=== PATIENT | female | born 1995 | race Caucasian/White ===

== ENCOUNTER → 2022-07-10 | Outpatient (CLI) | payer BC ==
--- NOTE | 2022-07-10 17:10 | Diagnostic Imaging Report ---
INDICATION: anatomy survey. TECHNIQUE: Multiple real-time grayscale images were obtained over the gravid uterus. COMPARISON: None FINDINGS: Cervix measures 4.7 cm in length. The fetus is in cephalic presentation. Placenta is anterior position and there are no features of previa. MELISSA is normal at 15.75 cm. Following anatomy is visualized and normal: Spine, left ventricular outflow tract, lips/nose, cerebral ventricles, stomach, four-chamber heart, urinary bladder, three-vessel cord, umbilical cord insertion, posterior fossa and kidneys. Biometrical measurements are as follows: Biparietal 4.82 cm, age 20 weeks 5 days. Head circumference 18.82 cm, age 20 weeks 6 days. Abdominal circumference 15.09 cm, age 20 weeks 3 days. Femur length 3.03 cm, age 19 weeks 3 days. Sonographic estimate age: 20 weeks 3 days. Sonographic estimated date of delivery: 11/24/2022. Estimated Weight: 325 gm (+/- 48 gm). LMP percentile: 30%. heart rate: 158 beats per minute. number: 1 of 1. IMPRESSION: Single live anterior has normal anatomy survey. Dictated by: Dictated on workstation # [id number]
== END ==
LOC: RAD 15:20
PROVIDERS: ATTEND Obstetrics & Gynecology
DX: Z36.89 Encounter for other specified antenatal screening (principal); Z3A.20 20 weeks gestation of pregnancy
CPT/HCPCS: 76805

== ENCOUNTER → 2022-10-12 | Outpatient (CLI) | payer BC | LOC: LABNPT 14:22 | PROVIDERS: ATTEND Obstetrics & Gynecology | DX: O13.9 Gestational [pregnancy-induced] hypertension without significant proteinuria, unspecified trimester (principal); Z3A.00 Weeks of gestation of pregnancy not specified | CPT/HCPCS: 82570; 84156 ==

== ENCOUNTER → 2022-11-11 | Outpatient (CLI) | payer BC | LOC: LABNPT 11:15 | PROVIDERS: ATTEND Nurse Practitioner Women's Health | DX: O13.9 Gestational [pregnancy-induced] hypertension without significant proteinuria, unspecified trimester (principal); Z3A.00 Weeks of gestation of pregnancy not specified | CPT/HCPCS: 82570; 84156 ==

== ENCOUNTER 2022-11-18 02:14 | Inpatient (IN) | payer BC ==
[~2022-11-18] VITALS: Ht 172 cm; Wt 164.0 kg
[2022-11-18] VITALS (52 sets, daily range): BP systolic 126–181; BP diastolic 60–92
--- NOTE | 2022-11-18 06:37 | History & Physical-OB/GYN ---
CLAREBENI 11/18/22 0637: OB - Chief Complaint & HPI Date/Time Date of Admission: Date of Admission: Nov 18, 2022 at 06:10 Date seen by a Provider: Nov 18, 2022 Time Seen by a Provider: 06:20 Chief Complaint/History OB-Reason for Admission/Chief: Induction of Labor Hx : 2 Hx Para: 1 Expected Date of Delivery: Nov 25, 2022 Gestational Age in Weeks: 39 Gestational Age in Days: 0 Indication for induction: medical complication (gestational hypertension) History of Labs O+ Antibody Neg VDRL NR HBsAg NR HIV NR G/C Neg RI GBS Neg Allergies and Home Medications Allergies Coded Allergies: No Known Drug Allergies (Unverified , 11/18/22) Patient Home Medication List Home Medication List Reviewed: Yes OB - History Hx of Present Care: Yes Ultrasounds: Normal mid trimester US Obstetrical Complications: Gestational Hypertension Medical Complications: None Information Induced Hypertension: No Maternal Gestational Diabetes: No Hemorrhage: No Obstetrical History Hx : 2 Hx Para: 1 Number of Living Children: 1 Hx Termination: No Hx Total # of Abortions (Spona: 0 Hx Multiple Gestation: No Hx Ectopic : No Hx Stillbirth: No Hx Complication: No Hx Induced Hypertens: Yes Hx Maternal Gestational Diabet: No Hx Hemorrhage: No Delivery History Hx Dystocia: No Hx Forceps Assisted Delivery: No Hx Vacuum Extraction Assisted: No Hx Placenta Abnormality: No Hx Distress: No Hx Large For Gestational Age I: No Hx Small for Gestational Age I: No Hx Section: No Hx Vaginal Delivery Post C-Sec: No Hx Blood Disorders: No Adverse Rxn to Tranfusion: No Patient Past Medical History NC Social History/Family History Alcohol Use: Denies Use Recreational Drug Use: No Smoking Cessation: Never smoker Immunizations Rubella: immune RPR/VDRL: Negative GBS Status: Negative HBsAG: Negative OB - Admission Exam Physical Exam HEENT: PERRLA Heart: Rhythm Normal (tachycardic) Lungs: Clear Abdomen: Gravid Extremities: Edema Reflexes: Normal OB - Assessment/Plan/Diagnosis Assessment Assessment: induction of labor Admission Dx at 39 weeks 0 days IOL secondary to gestational hypertension Hx gestational hypertension in previous GBS Negative Otherwise uncomplicated Admission Status: Inpatient Order (span 2 midnights) Reason for Inpatient Admission: IOL due to gestational hypertension Plan Plan: Induction SYED MARTINEZ DO 11/18/22 0714: Allergies and Home Medications Allergies Coded Allergies: No Known Drug Allergies (Unverified , 11/18/22) Supervisory-Addendum Brief Verification & Attestation Participated in pt care: history Personally performed: exam Care discussed with: Medical Student Procedures: n/a Results interpretation: Verified all documentation Verification and Attestation of Medical Student E/M Service A medical student performed and documented this service in my presence. I reviewed and verified all information documented by the medical student and made modifications to such information, when appropriate. I personally performed the physical exam and medical decision making. Syed Martinez Nov 18, 2022,07:14 BENI SPARKS Nov 18, 2022 06:37 YSED MARTINEZ DO Nov 18, 2022 07:14
[2022-11-18] MEDS ORDERED: D5 LR IV SOLUTION 1,000 ML IV SCH (06:45)
[2022-11-18] MEDS ORDERED: MINERAL OIL 30 ML UDC TOP PRN (06:45)
[2022-11-18 06:51] LABS: BASOPHILS % (AUTO) 0 % (0-10); EOSINOPHILS # (AUTO) 0.1 10^3/uL (0.0-0.3); EOSINOPHILS % (AUTO) 1 % (0-10); HEMATOCRIT 37 % (35-52); HEMOGLOBIN 12.1 g/dL (11.5-16.0); LYMPHOCYTES % (AUTO) 19 % (12-44); MEAN CORPUSCULAR HEMOGLOBIN 27 pg (25-34); MEAN CORPUSCULAR HGB CONC 33 g/dL (32-36); MEAN CORPUSCULAR VOLUME 81 fL (80-99); MEAN PLATELET VOLUME 10.8 fL (9.0-12.2); MONOCYTES # (AUTO) 0.7 10^3/uL (0.0-1.0); MONOCYTES % (AUTO) 7 % (0-12); NEUTROPHILS # (AUTO) 7.6 10^3/uL (1.8-7.8); NEUTROPHILS % (AUTO) 72 % (42-75); PLATELET COUNT 271 10^3/uL (130-400); WHITE BLOOD COUNT 10.5 10^3/uL (4.3-11.0)
[2022-11-18 06:52] LABS: BILIRUBIN,URINE NEGATIVE (NEGATIVE); CLARITY,URINE CLEAR; COLOR,URINE YELLOW; GLUCOSE, URINE (UA) NEGATIVE (NEGATIVE); KETONES,URINE NEGATIVE (NEGATIVE); LEUKOCYTE ESTERASE ,URINE 2+ (NEGATIVE); NITRITE,URINE NEGATIVE (NEGATIVE); PH,URINE 6.5 (5-9); PROTEIN,URINE NEGATIVE (NEGATIVE)
[2022-11-18 07:03] LABS: BACTERIA,URINE LARGE /HPF; RBC,URINE 0-2 /HPF
[2022-11-18] MEDS ORDERED: fentaNYL 2 mcg/ml BUPIVA 0.125 100 ML ONE (09:36)
[2022-11-18] MEDS ORDERED: LACTATED RINGERS 1,000 ML IV ONE ×3 (09:36→10:30)
[2022-11-18] MEDS ORDERED: ONDANSETRON 4 MG/2 ML (SDV) Z0FRAN IV PRN (10:30)
[2022-11-18] MEDS ORDERED: fentaNYL 2 mcg/ml BUPIVA 0.125 100 ML EPI SCH (10:30)
[2022-11-18] MEDS ORDERED: NALOXONE 0.4 MG/ML 1 ML (NARCAN) VIAL IV PRN ×2 (10:30→17:00)
[2022-11-18] MEDS ORDERED: fentaNYL INJ 100 MCG/2 ML AMP INJ ONE (10:30)
[2022-11-18] MEDS ORDERED: fentaNYL INJ 100 MCG/2 ML AMP ONE (10:31)
[2022-11-18] MEDS ORDERED: BUPIVACAINE 0.25% 10 ML (SENSORCAINE) VIAL ONE (10:31)
[2022-11-18] MEDS: OXYTOCIN PRE-MIX DRIP 500 ML IV SCH ×2 (11:26→16:55)
[2022-11-18] MEDS ORDERED: CATHETER FLUSH 10 ML SYR IV SCH ×2 (14:00→22:00)
[2022-11-18] MEDS ORDERED: LIDOCAINE 1% INJ 10 ML VIAL ONE (16:15)
--- NOTE | 2022-11-18 16:59 | OB Labor & Delivery Record ---
L&D History Date of Service Date of Service: Nov 18, 2022 History Expected Date of Delivery: Nov 25, 2022 Gestational Age in Weeks: 39 Hx : 2 Hx Para: 1 Complications Events: Routine care Operative Indications (Cesarea: N/A-Vaginal Delivery Intrapartal Events: None L&D Stage1 Stage One Onset of Labor - Date: Nov 18, 2022 Monitors and Tracing Monitor Mode: External Heart Rate: 140 Monitor Accelerations: Uniform Monitor Decelerations: None Longterm Variability: Average (6-10) Short Term Variability: Present Presentation: Vertex Vital Signs VS - Last 72 Hours, by Label 11/18/22 11/18/22 06:57 09:16 Temp 36.7 36.4 Pulse 128 96 Resp 18 18 B/P (MAP) 148/92 (110) Pulse Ox 97 97 O2 Delivery Room Air Room Air Rupture of Membranes Spontaneous Ruture of Membrane: No Amniotic Membrane Rupture Time: 0812 Amniotic Membrane Fluid Desc.: Clear Vaginal Bleeding Description: Normal Show Induction/Anesthesia Epidural Cath Placement - Time: 1048 Progress/Notes Patient admitted for elective IOL at 39 weeks. AROM performed this am with FSE. Pitocin augmentation started and progressed to max dose of 10 mu. Epidural placed and patient progressed to complete and + 2 station L&D Stage2 Stage Two Stage II Date: Nov 18, 2022 Monitors and Tracing Monitor Mode: External Heart Rate: 140 Monitor Accelerations: Uniform Monitor Decelerations: Variable Managed Care Manager Variability: Average (6-10) Short Term Variability: Present Position: Right Occiput Anterior Presentation: Vertex Cord Descript/Complications Cord Vessel Description: 3 Vessels Delivery Type Infant Delivery Method: Spontaneous Vaginal Anterior Shoulder: Left Episiotomy/Perineal Laceration Laceraction(s)/Extensions: Yes Episiotomy Description: Perineal Extension/lac (extending up the right labia minora), 2nd degree Degree (describe repair) lacerations repaired using 3-0 and 2-0 vicryl in usual fashion Condition of Delivery 1 minute Comment: 8 5 minute Comment: 9 Notes Live female infant weight 6lbs 5 oz Condition of Condition of : Living Exam: No Observed Abnormalities Resuscitation Resuscitation: N/A - Spontaneous Resp L&D Stage3 Stage Three Stage III Date: Nov 18, 2022 Pictocin Pitocin Administration Comment: 30 mu wide open after delivery of placenta Placenta Delivery Placenta Delivery: Spontaneous Delivery Summary Summary Estimated blood loss (mL): 350 Attending at delivery: Syed Martinez DO Condition of Delivery Examined: Cervix Examined, Uterus Explored Post Hemorrhage: No Condition of Mother stable Condition of Infant (s) stable SYED MARTINEZ DO Nov 18, 2022 16:59
[2022-11-18] MEDS ORDERED: DIBUCAINE 1% OINTMENT 28 GM TUBE TOP PRN (17:00)
[2022-11-18] MEDS ORDERED: BENZOCAINE/MENTHOL (DERMOPLAST) 56 ML CAN TP PRN (17:00)
[2022-11-18] MEDS ORDERED: WITCH HAZEL(TUCKS) 40 EA JAR TOP PRN (17:00)
[2022-11-18] MEDS ORDERED: OXYTOCIN PRE-MIX DRIP 500 ML IV SCH (17:00)
[2022-11-18] MEDS ORDERED: MEASLES,MUMPS,RUBELLA 1 EA INJ SQ ONE (17:00)
[2022-11-18] MEDS ORDERED: TETANUS,DIPTH,PERTUSS P/F (BOOSTRIX) 0.5 ML VIAL IM ONE (17:00)
--- NOTE | 2022-11-18 17:00 | Discharge Inst-Women's Service ---
Discharge Inst-Women's Serv Depart Medication/Instructions New, Converted or Re-Newed RX: Transmitted to Pharmacy Final Diagnosis PPD 2 NVD Problems Reviewed?: Yes Consults/Follow Up Additional Follow Up: Yes Orders/Referrals Dr. Martinez in 6 weeks Activity Activity: Activity as Tolerated Driving Instructions: No Driving for 1 Week NO SMOKING: NO SMOKING Nothing Inside Vagina: No Douching, No [place], No Tampons Diet Discharge Diet: No Restrictions Symptoms to Report to : Bleeding Excessive, Pain Increased, Fever Over 101 Degrees F, Vaginal Bleeding Increase, Questions/Concerns For Any Problems or Questions: Contact Your Physician SYED MARTINEZ DO Nov 18, 2022 17:00
[2022-11-18] MEDS ORDERED: IBUP-844 PO (17:01)
[2022-11-18] MEDS ORDERED: FERR325T24 PO (17:01)
[2022-11-18] MEDS ORDERED: DIBU30OI TOP (17:01)
[2022-11-18] MEDS ORDERED: DOCU100C37 PO (17:01)
[2022-11-18] MEDS ORDERED: ACHD5005 PO (17:01)
[2022-11-18] MEDS ORDERED: BENZ78AE5 TP (17:01)
[2022-11-18] MEDS: IBUPROFEN 600 MG (MOTRIN) TAB PO SCH (18:46)
[2022-11-18] MEDS: HYDROcodone/APAP 5 MG/325 MG (LORTAB) TAB PO PRN (18:46)
[2022-11-18] MEDS: DOCUSATE SODIUM 100 MG (COLACE) CAP PO SCH (21:59)
[2022-11-19] MEDS: IBUPROFEN 600 MG (MOTRIN) TAB PO SCH ×4 (00:57→18:24)
[2022-11-19 00:58] VITALS: BP 143/75
[2022-11-19] MEDS: HYDROcodone/APAP 5 MG/325 MG (LORTAB) TAB PO PRN ×2 (00:58→06:58)
[2022-11-19 06:47] LABS: BASOPHILS # (AUTO) 0.1 10^3/uL (0.0-0.1); BASOPHILS % (AUTO) 1 % (0-10); EOSINOPHILS # (AUTO) 0.1 10^3/uL (0.0-0.3); EOSINOPHILS % (AUTO) 1 % (0-10); HEMATOCRIT 30 % (35-52); HEMOGLOBIN 9.7 g/dL (11.5-16.0); LYMPHOCYTES # (AUTO) 1.8 10^3/uL (1.0-4.0); LYMPHOCYTES % (AUTO) 16 % (12-44); MEAN CORPUSCULAR HEMOGLOBIN 26 pg (25-34); MEAN CORPUSCULAR HGB CONC 32 g/dL (32-36); MEAN CORPUSCULAR VOLUME 82 fL (80-99); MONOCYTES # (AUTO) 0.9 10^3/uL (0.0-1.0); MONOCYTES % (AUTO) 8 % (0-12); NEUTROPHILS # (AUTO) 8.2 10^3/uL (1.8-7.8); NEUTROPHILS % (AUTO) 74 % (42-75); PLATELET COUNT 212 10^3/uL (130-400); WHITE BLOOD COUNT 11.2 10^3/uL (4.3-11.0)
[2022-11-19 06:54] LABS: ALBUMIN 2.7 GM/DL (3.2-4.5)
[2022-11-19 06:55] LABS: POTASSIUM 3.8 MMOL/L (3.6-5.0)
[2022-11-19 06:56] LABS: CALCIUM 8.3 MG/DL (8.5-10.1)
[2022-11-19 06:57] VITALS: BP 130/79
[2022-11-19 06:57] LABS: TOTAL PROTEIN 5.7 GM/DL (6.4-8.2)
[2022-11-19 06:59] LABS: BILIRUBIN,TOTAL 0.4 MG/DL (0.1-1.0)
[2022-11-19] MEDS ORDERED: PRENATAL VITAMIN 1 EA TAB PO SCH (07:00)
[2022-11-19 07:01] LABS: CREATININE SERUM 0.69 MG/DL (0.60-1.30)
--- NOTE | 2022-11-19 07:43 | Postpartum Progress Note ---
CLAREBENI 11/19/22 0743: Note Note Day # 1 Subjective: Patient is without complaints. Ambulating, voiding. Tolerating a regular diet without nausea or vomiting. Normal lochia. Pain is well controlled with oral pain medications. Breast feeding. Objective: Seated in bed at time of evaluation, no signs of distress. Physical Exam: General - Alert and oriented, no apparent distress Abdomen - Soft, appropriately tender to palpation, non-distended, fundus firm at umbilicus Extremities - no edema, negative Tatianna's bilaterally Assessment: PPD 1 s/p NVD Acute blood loss anemia Plan: Routine care. Encourage breast feeding. Encourage ambulation. Ferrous sulfate supplementation. Plan for discharge tomorrow. Vitals - Labs Vital Signs - I&O Vital Signs Date Time Temp Pulse Resp B/P (MAP) Pulse Ox O2 Delivery O2 Flow Rate FiO2 11/19/22 06:57 35.5 90 18 130/79 (96) 97 Room Air 11/19/22 00:58 36.4 96 18 143/75 (97) 97 Room Air 11/18/22 21:59 35.9 108 18 126/66 (86) 96 Room Air 11/18/22 18:36 98 18 139/67 (91) Room Air 11/18/22 18:21 90 18 149/80 (103) Room Air 11/18/22 18:06 104 18 137/77 (97) Room Air 11/18/22 17:51 92 18 150/75 (100) Room Air 11/18/22 17:34 36.7 96 18 144/78 (100) Room Air 11/18/22 16:52 107 18 151/67 (95) Room Air 11/18/22 16:32 111 18 142/63 (89) Room Air 11/18/22 16:17 114 18 156/72 (100) Room Air 11/18/22 16:12 18 138/78 (98) Room Air 11/18/22 10:53 100 18 135/65 (88) 97 Room Air 11/18/22 10:50 80 18 146/73 (97) 96 Room Air 11/18/22 10:48 91 18 134/83 (100) Room Air 11/18/22 10:45 81 18 147/73 (97) 96 Room Air 11/18/22 10:41 86 18 140/76 (97) 97 Room Air 11/18/22 10:39 84 18 137/71 (93) 97 Room Air 11/18/22 10:36 87 18 145/86 (105) 97 Room Air 11/18/22 09:16 36.4 96 18 97 Room Air 11/18/22 09:13 96 18 139/88 (105) Room Air I & O 11/19/22 07:00 Intake Total 1500 ml Balance 1500 ml Labs Laboratory Tests 11/19/22 06:33: White Blood Count 11.2H, Red Blood Count 3.67L, Hemoglobin 9.7L, Hematocrit 30L, Mean Corpuscular Volume 82, Mean Corpuscular Hemoglobin 26, Mean Corpuscular Hemoglobin Concent 32, Red Cell Distribution Width 13.8, Platelet Count 212, Mean Platelet Volume 11.0, Immature Granulocyte % (Auto) 1, Neutrophils (%) (Auto) 74, Lymphocytes (%) (Auto) 16, Monocytes (%) (Auto) 8, Eosinophils (%) (Auto) 1, Basophils (%) (Auto) 1, Neutrophils # (Auto) 8.2H, Lymphocytes # (Auto) 1.8, Monocytes # (Auto) 0.9, Eosinophils # (Auto) 0.1, Basophils # (Auto) 0.1, Immature Granulocyte # (Auto) 0.1, Sodium Level 137, Potassium Level 3.8, Chloride Level 109H, Carbon Dioxide Level 20L, Anion Gap 8, Blood Urea Nitrogen 7, Creatinine 0.69, Estimat Glomerular Filtration Rate 122, BUN/Creatinine Ratio 10, Glucose Level 76, Calcium Level 8.3L, Corrected Calcium 9.3, Total Bilirubin 0.4, Aspartate Amino Transf (AST/SGOT) 15, Alanine Aminotransferase (ALT/SGPT) 19, Alkaline Phosphatase 125, Total Protein 5.7L, Albumin 2.7L MICKEY MARTINEZ DO 11/19/22 0803: Note Note Verification and Attestation of Medical Student E/M Service A medical student performed and documented this service in my presence. I reviewed and verified all information documented by the medical student and made modifications to such information, when appropriate. I personally performed the physical exam and medical decision making. Mickey Martinez Nov 19, 2022,08:03 BENI SPARKS Nov 19, 2022 07:43 MICKEY MARTINEZ DO Nov 19, 2022 08:03
[2022-11-19] MEDS: DOCUSATE SODIUM 100 MG (COLACE) CAP PO SCH (08:41)
[2022-11-19 08:42] VITALS: BP 131/90
[2022-11-19] MEDS ORDERED: FERROUS SULF 325 MG (IRON) TAB PO SCH (09:00)
[2022-11-19 12:20] VITALS: BP 134/80
[2022-11-19 16:48] VITALS: BP 135/90
== END 2022-11-19 19:45 | disposition home or self-care (01) | DRG 806 ==
LOC: LDRP 06:10
PROVIDERS: ADMIT Obstetrics & Gynecology; ATTEND Obstetrics & Gynecology
PROC: 10E0XZZ Delivery of Products of Conception, External Approach (ICD-10-PCS; principal; 2022-11-18)
PROC: 0KQM0ZZ Repair Perineum Muscle, Open Approach (ICD-10-PCS; 2022-11-18)
PROC: 0W8NXZZ Division of Female Perineum, External Approach (ICD-10-PCS; 2022-11-18)
PROC: 10H073Z Insertion of Monitoring Electrode into Products of Conception, Via Natural or Artificial Opening (ICD-10-PCS; 2022-11-18)
PROC: 10907ZC Drainage of Amniotic Fluid, Therapeutic from Products of Conception, Via Natural or Artificial Opening (ICD-10-PCS; 2022-11-18)
DX: O13.4 Gestational [pregnancy-induced] hypertension without significant proteinuria, complicating childbirth (principal); D62 Acute posthemorrhagic anemia; Z37.0 Single live birth; Z3A.39 39 weeks gestation of pregnancy; O70.1 Second degree perineal laceration during delivery; O90.81 Anemia of the puerperium
CPT/HCPCS: 36415; 80053; 81000; 85025; 86780; 86850; 86900; 86901; 87088